=== PATIENT | male | born 1975 | race African-American/Black ===

== ENCOUNTER 2018-01-07 09:44 | Day surgery (SDC) | payer BC ==
[~2018-01-07] VITALS: Ht 182.9 cm; Wt 104.3 kg
[~2018-01-07 09:44] MED LIST: OXYCODONE HCL10 MG PO
[2018-01-12] MEDS ORDERED: NAPROSYN500 MG PO (11:55)
== END 2018-01-07 11:10 | disposition home or self-care (01) ==
LOC: PAIN 09:44 → SDC 09:45 → PAIN 11:10
PROC: BR161ZZ Fluoroscopy of Lumbar Facet Joint(s) using Low Osmolar Contrast (ICD-10-PCS; principal; 2018-01-07)
PROC: 3E0T33Z Introduction of Anti-inflammatory into Peripheral Nerves and Plexi, Percutaneous Approach (ICD-10-PCS; principal; 2018-01-07)
PROC: 3E0T3BZ Introduction of Anesthetic Agent into Peripheral Nerves and Plexi, Percutaneous Approach (ICD-10-PCS; principal; 2018-01-07)
DX: M47.816 Spondylosis without myelopathy or radiculopathy, lumbar region (principal); M54.16 Radiculopathy, lumbar region; M17.10 Unilateral primary osteoarthritis, unspecified knee; Z88.5 Allergy status to narcotic agent
CPT/HCPCS: J1030; J2250; S0020

== ENCOUNTER 2018-01-14 10:38 | Day surgery (SDC) | payer BC ==
[~2018-01-14] VITALS: Ht 182.9 cm; Wt 104.3 kg
[~2018-01-14 10:38] MED LIST changes: +NAPROSYN500 MG PO
== END 2018-01-14 11:50 | disposition home or self-care (01) ==
LOC: PAIN 10:38 → SDC 10:45 → PAIN 11:50
DX: M47.816 Spondylosis without myelopathy or radiculopathy, lumbar region (principal); M54.16 Radiculopathy, lumbar region; M17.10 Unilateral primary osteoarthritis, unspecified knee; Z86.19 Personal history of other infectious and parasitic diseases; Z88.5 Allergy status to narcotic agent
CPT/HCPCS: J1030; J2250; J3010; S0020